=== PATIENT | male | born 1985 | race African-American/Black ===

== ENCOUNTER 2017-03-07 05:51 | Emergency (ER) | payer SELFPAY ==
[2017-03-07 06:14] LABS: #Basophils 0.1 thou/uL (0.0-0.2); #Eosinphils 0.2 thou/uL (0.0-0.7); #Lymphocytes 2.8 thou/uL (1.20-3.40); #Monocytes 0.7 thou/uL (0.11-0.59); #Neutrophils 5.8 thou/uL (1.40-6.50); %Basophils 1.1 % (0.0-1.0); %Eosinophils 1.8 % (0.0-10.0); %Lymphocytes 29.1 % (21.0-51.0); %Monocytes 6.8 % (0.0-10.0); %Neutrophils 61.2 % (42.0-75.0); Hemoglobin 15.2 g/dL (14.0-18.0); Mean Corpuscular HGB CONC 32.7 g/dL (32.0-36.0); Mean Corpuscular Hemoglobin 29.3 pg (27.0-31.0); Mean Corpuscular Volume 89.8 fl (80.0-94.0); Platelet Count 289 thou/uL (130-400); RBC Distribution Width 12.9 % (11.5-14.5); Red Blood Cell (RBC) Count 5.18 mill/uL (4.70-6.10); White Blood Cell (WBC) Count 9.5 thou/uL (4.8-10.8)
[2017-03-07 06:31] LABS: Bilirubin Negative (Negative); Blood, Urine Negative (Negative); Clarity CLEAR (Clear); Glucose, Urine (Dipstick) Negative (Negative); Leukocyte Negative (Negative); Nitrite Negative (Negative); Protein, Urine (Dipstick) Negative (Neg-Trace); Specific Gravity, Urine 1.011 (1.002-1.036); Urobilinogen 0.2 mg/dL (0.2-1.0); pH, Urine 5.5 (5.0-9.0)
[2017-03-07 06:34] LABS: ALT (SGPT) 27 U/L (8-55); AST (SGOT) 33 U/L (5-34); Acetaminophen Less than 6.0 mcg/mL (10.0-30.0); Albumin 4.6 g/dL (3.5-5.0); Alcohol 359 mg/dL (Less than 10); Alkaline Phosphatase 98 U/L (40-150); Anion Gap 20 mmol/L (10-20); BUN (Urea Nitrogen) 13 mg/dL (8.9-20.6); Bilirubin, Total 0.3 mg/dL (0.2-1.2); CK (CPK) 439 U/L (30-200); Calc. Creatinine Clearance 0 mL/min (70-130); Calcium 9.6 mg/dL (7.8-10.44); Carbon Dioxide 22 mmol/L (22-29); Chloride 104 mmol/L (98-107); Estimated GFR-MDRD 75; Globulin 2.8 g/dL (2.4-3.5); Glucose 107 mg/dL (70-105); Potassium 4.4 mmol/L (3.5-5.1); Protein, Total 7.4 g/dL (6.0-8.3); Salicylate Less than 8.0 mg/dL (15.0-30.0); Sodium 142 mmol/L (136-145)
[2017-03-07 06:38] LABS: Troponin I 0.018 ng/mL (< 0.028)
[2017-03-07 06:39] LABS: Amphetamine Not Detected (NotDetected); Barbiturates Screen Not Detected (NotDetected); Benzodiazepine Screen Not Detected (NotDetected); Cocaine Metabolite Screen Not Detected (NotDetected); Medtox Control Line Valid? VALID (VALID); Medtox Reader # READER 4; Methadone Not Detected (NotDetected); Methamphetamine Not Detected (NotDetected); Opiate Screen Not Detected (NotDetected); Oxycodone Screen Not Detected (NotDetected); Phencyclidine (PCP) Detected (NotDetected); THC/Cannabinoid Screen Detected (NotDetected); Tricyclic Screen Not Detected (NotDetected)
[2017-03-07 06:47] LABS: CKMB 7.2 ng/mL (0-6.6)
[2017-03-07] MEDS ORDERED: Multivitamins, Adult 10 ML, Thiamine HCl 100 MG, Folic Acid 1 MG in Dextrose 5 %-0.45 %... IV SCH ×4 (07:00)
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
== END 2017-03-07 12:55 | disposition home or self-care (01) ==
LOC: EDBD 05:51 → ERS 05:51
DX: F10.129 Alcohol abuse with intoxication, unspecified (principal); F17.200 Nicotine dependence, unspecified, uncomplicated
CPT/HCPCS: 36415; 36416; 51701; 70450; 80053; 80306; 80307; 81003; 82140; 82550; 82553; 84484; 85025; 93005; 94760; 96361; 96365; 96366; J3411; J7042

== ENCOUNTER 2017-08-15 19:46 | Emergency (ER) | payer SELFPAY ==
[2017-08-15] MEDS ORDERED: Lorazepam 2 MG/ML VIAL ONE (19:52)
[2017-08-15 20:14] LABS: #Eosinphils 0.2 thou/uL (0.0-0.7); #Lymphocytes 2.9 thou/uL (1.20-3.40); #Monocytes 0.6 thou/uL (0.11-0.59); #Neutrophils 5.2 thou/uL (1.40-6.50); %Basophils 0.5 % (0.0-1.0); %Eosinophils 1.7 % (0.0-10.0); %Lymphocytes 32.3 % (21.0-51.0); %Monocytes 7.1 % (0.0-10.0); %Neutrophils 58.4 % (42.0-75.0); Hemoglobin 11.9 g/dL (14.0-18.0); Mean Corpuscular Hemoglobin 28.3 pg (27.0-31.0); Mean Corpuscular Volume 85.8 fL (78.0-98.0); Platelet Count 220 thou/uL (130-400); RBC Distribution Width 12.2 % (11.5-14.5)
[2017-08-15 20:35] LABS: Acetaminophen Less than 6.0 mcg/mL (10.0-30.0); Alcohol 144 mg/dL (Less than 10); Anion Gap 13 mmol/L (10-20); BUN (Urea Nitrogen) 9 mg/dL (8.9-20.6); Calc. Creatinine Clearance 0 mL/min (70-130); Calcium 8.7 mg/dL (7.8-10.44); Carbon Dioxide 26 mmol/L (22-29); Chloride 104 mmol/L (98-107); Estimated GFR-MDRD 86; Glucose 92 mg/dL (70-105); Potassium 3.6 mmol/L (3.5-5.1); Salicylate Less than 8.0 mg/dL (15.0-30.0); Sodium 139 mmol/L (136-145)
[2017-08-15 20:45] LABS: Amphetamine Not Detected (NotDetected); Barbiturates Screen Not Detected (NotDetected); Benzodiazepine Screen Not Detected (NotDetected); Cocaine Metabolite Screen Not Detected (NotDetected); Medtox Control Line Valid? VALID (VALID); Medtox Reader # READER 4; Methadone Not Detected (NotDetected); Methamphetamine Not Detected (NotDetected); Opiate Screen Not Detected (NotDetected); Oxycodone Screen Not Detected (NotDetected); Phencyclidine (PCP) Not Detected (NotDetected); THC/Cannabinoid Screen Detected (NotDetected); Tricyclic Screen Not Detected (NotDetected)
== END 2017-08-15 21:14 | disposition home or self-care (01) ==
LOC: ERS 19:46
DX: F12.10 Cannabis abuse, uncomplicated (principal); F17.200 Nicotine dependence, unspecified, uncomplicated
CPT/HCPCS: 36415; 80048; 80306; 80307; 82550; 84443; 85025; 96361; 96374; J2060

== ENCOUNTER 2017-08-22 13:07 | Emergency (ER) | payer SELFPAY ==
[2017-08-22] MEDS ORDERED: Ketorolac Tromethamine 30 MG/ML VIAL ONE (13:46)
--- NOTE | 2017-08-22 13:50 | RAD ---
RIGHT SHOULDER 3 VIEWS: Date: 08/22/17 PROVIDED CLINICAL HISTORY: Right shoulder pain. FINDINGS: No evidence for fracture or other acute osseous abnormality. Alignment appears anatomic. Joint spaces appear preserved. Visualized right lung field appears clear. IMPRESSION: Unremarkable right shoulder radiographs. POS: [facility]
== END 2017-08-22 14:22 | disposition home or self-care (01) ==
LOC: ERS 13:07
DX: S46.911A Strain of unspecified muscle, fascia and tendon at shoulder and upper arm level, right arm, initial encounter (principal); X58.XXXA Exposure to other specified factors, initial encounter
CPT/HCPCS: 96372; J1885

== ENCOUNTER 2017-10-27 02:03 | Emergency (ER) | payer SELFPAY | END 2017-10-27 02:40 | LOC: ERS 02:03 | DX: F19.10 Other psychoactive substance abuse, uncomplicated (principal); Z02.89 Encounter for other administrative examinations | CPT/HCPCS: 99283 ==

== ENCOUNTER 2018-02-10 23:38 | Emergency (ER) | payer SELFPAY ==
[2018-02-10] MEDS ORDERED: Ondansetron PF 4 MG/2 ML Vial ONE (23:56)
--- NOTE | 2018-02-11 00:03 | CT ---
BRAIN CT WITHOUT IV CONTRAST 02/10/18 HISTORY: 32-year-old male with history of altered mental status. COMPARISON: 03/07/17 FINDINGS: No focal mass or midline shift. No intra or extra-axial hemorrhage. Minimal ethmoid and maxillary sin us mucosal disease. The mastoids are clear. IMPRESSION: No acute intracranial process. No mass or bleed. Mild sinus mucosal disease. POS: [facility]
[2018-02-11 00:05] LABS: #Basophils 0.1 thou/uL (0.0-0.2); #Lymphocytes 1.4 thou/uL (1.20-3.40); #Monocytes 0.4 thou/uL (0.11-0.59); #Neutrophils 3.9 thou/uL (1.40-6.50); %Basophils 0.9 % (0.0-1.0); %Eosinophils 0.5 % (0.0-10.0); %Lymphocytes 23.7 % (21.0-51.0); %Monocytes 7.6 % (0.0-10.0); %Neutrophils 67.2 % (42.0-75.0); Hemoglobin 13.3 g/dL (14.0-18.0); Mean Corpuscular HGB CONC 32.6 g/dL (32.0-36.0); Mean Corpuscular Hemoglobin 28.6 pg (27.0-31.0); Mean Corpuscular Volume 87.5 fL (78.0-98.0); Mean Platelet Volume 8.4 fL (7.4-10.4); Platelet Count 209 thou/uL (130-400); RBC Distribution Width 12.2 % (11.5-14.5); Red Blood Cell (RBC) Count 4.67 mill/uL (4.70-6.10); White Blood Cell (WBC) Count 5.8 thou/uL (4.8-10.8)
[2018-02-11 00:23] LABS: ALT (SGPT) 17 U/L (8-55); AST (SGOT) 16 U/L (5-34); Acetaminophen Less than 6.0 mcg/mL (10.0-30.0); Albumin 4.2 g/dL (3.5-5.0); Alcohol 93 mg/dL (Less than 10); Alkaline Phosphatase 57 U/L (40-150); Anion Gap 18 mmol/L (10-20); BUN (Urea Nitrogen) 10 mg/dL (8.9-20.6); Bilirubin, Total 0.3 mg/dL (0.2-1.2); Calc. Creatinine Clearance 0 mL/min (70-130); Carbon Dioxide 20 mmol/L (22-29); Chloride 104 mmol/L (98-107); Estimated GFR-MDRD 82; Globulin 2.3 g/dL (2.4-3.5); Glucose 140 mg/dL (70-105); Potassium 3.7 mmol/L (3.5-5.1); Protein, Total 6.5 g/dL (6.0-8.3); Salicylate Less than 8.0 mg/dL (15.0-30.0); Sodium 138 mmol/L (136-145)
[2018-02-11] MEDS ORDERED: Lidocaine 1% w/Epinephrine 1:100K 20 ML VIAL ONE (00:41)
[2018-02-11 01:47] LABS: Bilirubin Negative (Negative); Blood, Urine Negative (Negative); Clarity CLEAR (Clear); Glucose, Urine (Dipstick) Negative (Negative); Leukocyte Negative (Negative); Nitrite Negative (Negative); Protein, Urine (Dipstick) Negative (Neg-Trace); Urobilinogen 0.2 mg/dL (0.2-1.0); pH, Urine 5.5 (5.0-9.0)
[2018-02-11 01:57] LABS: Medtox Reader # READER 4; THC/Cannabinoid Screen Not Detected (NotDetected)
[2018-02-11 01:58] LABS: Amphetamine Not Detected (NotDetected); Barbiturates Screen Not Detected (NotDetected); Benzodiazepine Screen Not Detected (NotDetected); Cocaine Metabolite Screen Not Detected (NotDetected); Medtox Control Line Valid? VALID (VALID); Methadone Not Detected (NotDetected); Methamphetamine Not Detected (NotDetected); Opiate Screen Not Detected (NotDetected); Oxycodone Screen Not Detected (NotDetected); Phencyclidine (PCP) Detected (NotDetected); Tricyclic Screen Not Detected (NotDetected)
== END 2018-02-11 02:26 | disposition home or self-care (01) ==
LOC: ERS 23:38
DX: F19.10 Other psychoactive substance abuse, uncomplicated (principal); F10.129 Alcohol abuse with intoxication, unspecified
CPT/HCPCS: 12001; 70450; 80053; 80306; 80307; 81003; 85025; 96361; 96374; J2001; J2405

== ENCOUNTER 2018-03-15 21:44 | Emergency (ER) | payer SELFPAY ==
[2018-03-15 22:20] LABS: #Basophils 0.1 thou/uL (0.0-0.2); #Eosinphils 0.1 thou/uL (0.0-0.7); #Monocytes 0.7 thou/uL (0.11-0.59); #Neutrophils 6.4 thou/uL (1.40-6.50); %Basophils 1.3 % (0.0-1.0); %Eosinophils 1.3 % (0.0-10.0); %Lymphocytes 21.6 % (21.0-51.0); %Neutrophils 68.8 % (42.0-75.0); Hemoglobin 14.4 g/dL (14.0-18.0); Mean Corpuscular Hemoglobin 28.4 pg (27.0-31.0); Mean Corpuscular Volume 88.9 fL (78.0-98.0); Platelet Count 216 thou/uL (130-400); RBC Distribution Width 12.8 % (11.5-14.5); Red Blood Cell (RBC) Count 5.05 mill/uL (4.70-6.10); White Blood Cell (WBC) Count 9.2 thou/uL (4.8-10.8)
--- NOTE | 2018-03-15 22:24 | RAD ---
PORTABLE CHEST ONE VEIW: 03/15/18 at 10:04 p.m. HISTORY: Altered mental status. FINDINGS: The heart size is normal. The lungs are well expanded without focal areas of consolidation, pneumotho races, or pleural effusions. IMPRESSION: No acute process. POS: [facility]
[2018-03-15 22:38] LABS: Acetaminophen Less than 6.0 mcg/mL (10.0-30.0); Alcohol Less than 10 mg/dL (Less than 10); Salicylate Less than 8.0 mg/dL (15.0-30.0)
[2018-03-15 22:39] LABS: ALT (SGPT) 44 U/L (8-55); AST (SGOT) 126 U/L (5-34); Albumin 3.8 g/dL (3.5-5.0); Alkaline Phosphatase 61 U/L (40-150); Anion Gap 13 mmol/L (10-20); BUN (Urea Nitrogen) 12 mg/dL (8.9-20.6); Bilirubin, Total 0.4 mg/dL (0.2-1.2); Calc. Creatinine Clearance 0 mL/min (70-130); Calcium 8.8 mg/dL (7.8-10.44); Carbon Dioxide 22 mmol/L (22-29); Chloride 104 mmol/L (98-107); Estimated GFR-MDRD 78; Globulin 1.9 g/dL (2.4-3.5); Glucose 88 mg/dL (70-105); Potassium 3.8 mmol/L (3.5-5.1); Protein, Total 5.7 g/dL (6.0-8.3); Sodium 135 mmol/L (136-145)
--- NOTE | 2018-03-15 22:39 | CT ---
CT OF THE BRAIN WITHOUT CONTRAST: 03/15/18 HISTORY: Altered mental status. FINDINGS: Comparison is made with the exam of 03/13/18. No evidence of acute infarct, hemorrhage, midline shift, or abnormal extra-axial fluid collections ar e seen. The ventricular size is normal and the basilar cisterns patent. The bony calvarium is intact. There is minimal mucosal disease in the paranasal sinuses. IMPRESSION: No CT evidence of acute intracranial process. POS: [facility]
[2018-03-15 22:50] LABS: CK (CPK) 7033 U/L (30-200)
[2018-03-15 23:22] LABS: Bilirubin Negative (Negative); Blood, Urine Negative (Negative); Clarity CLEAR (Clear); Glucose, Urine (Dipstick) Negative (Negative); Leukocyte Negative (Negative); Nitrite Negative (Negative); Protein, Urine (Dipstick) Negative (Neg-Trace); Specific Gravity, Urine 1.001 (1.002-1.036); Urobilinogen 0.2 mg/dL (0.2-1.0)
[2018-03-15 23:24] LABS: Medtox Control Line Valid? VALID (VALID); Medtox Reader # READER 1
[2018-03-15 23:26] LABS: Amphetamine Not Detected (NotDetected); Barbiturates Screen Not Detected (NotDetected); Benzodiazepine Screen Not Detected (NotDetected); Cocaine Metabolite Screen Not Detected (NotDetected); Methadone Not Detected (NotDetected); Methamphetamine Not Detected (NotDetected); Opiate Screen Not Detected (NotDetected); Oxycodone Screen Not Detected (NotDetected); Phencyclidine (PCP) Detected (NotDetected); THC/Cannabinoid Screen Detected (NotDetected); Tricyclic Screen Not Detected (NotDetected)
== END 2018-03-16 01:26 | disposition home or self-care (01) ==
LOC: ERS 21:44
DX: T40.995A Adverse effect of other psychodysleptics [hallucinogens], initial encounter (principal); R79.89 Other specified abnormal findings of blood chemistry
CPT/HCPCS: 36415; 70450; 71045; 80053; 80306; 80307; 81003; 82140; 82550; 84443; 84484; 85025; 93005; 96360; 96361

== ENCOUNTER 2018-08-28 21:20 | Emergency (ER) | payer SELFPAY ==
[~2018-08-28 21:20] MED LIST: ISOVUE-370 76%-LOCM 1 ML ONE
[2018-08-28 21:43] LABS: #Basophils 0.1 thou/uL (0.0-0.2); #Eosinphils 0.3 thou/uL (0.0-0.7); #Lymphocytes 2.9 thou/uL (1.20-3.40); #Monocytes 0.4 thou/uL (0.11-0.59); #Neutrophils 3.8 thou/uL (1.40-6.50); %Basophils 1.2 % (0.0-1.0); %Eosinophils 3.6 % (0.0-10.0); %Lymphocytes 38.6 % (21.0-51.0); %Monocytes 5.9 % (0.0-10.0); %Neutrophils 50.6 % (42.0-75.0); Hemoglobin 12.6 g/dL (14.0-18.0); Mean Corpuscular HGB CONC 31.5 g/dL (32.0-36.0); Mean Corpuscular Hemoglobin 27.6 pg (27.0-31.0); Mean Corpuscular Volume 87.6 fL (78.0-98.0); Mean Platelet Volume 8.2 fL (7.4-10.4); Platelet Count 201 thou/uL (130-400); Red Blood Cell (RBC) Count 4.56 mill/uL (4.70-6.10); White Blood Cell (WBC) Count 7.5 thou/uL (4.8-10.8)
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
[2018-08-28 21:56] LABS: ALT (SGPT) 17 U/L (8-55); AST (SGOT) 19 U/L (5-34); Albumin 3.8 g/dL (3.5-5.0); Alkaline Phosphatase 51 U/L (40-150); Anion Gap 11 mmol/L (10-20); BUN (Urea Nitrogen) 11 mg/dL (8.9-20.6); Bilirubin, Total 0.2 mg/dL (0.2-1.2); Calc. Creatinine Clearance 0 mL/min (70-130); Calcium 8.5 mg/dL (7.8-10.44); Carbon Dioxide 22 mmol/L (22-29); Chloride 107 mmol/L (98-107); Estimated GFR-MDRD Greater than 90; Glucose 96 mg/dL (70-105); Potassium 3.9 mmol/L (3.5-5.1); Protein, Total 5.8 g/dL (6.0-8.3); Sodium 136 mmol/L (136-145)
[2018-08-28 21:58] LABS: Acetaminophen Less than 6.0 mcg/mL (10.0-30.0); Alcohol 242 mg/dL (Less than 10); Salicylate Less than 8.0 mg/dL (15.0-30.0)
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
--- NOTE | 2018-08-28 22:06 | CT ---
CT cervical spine without contrast: 08/28/2018 COMPARISON: 06/03/2009 HISTORY: Injury, trauma, pain TECHNIQUE: Axial CT imaging at 2.5 mm intervals through the cervical spine without contrast. Coronal and sagittal reformatted imaging obtained. FINDINGS: C1 ring is intact. Imaged lung apices demonstrate mild subpleural emphysematous change. No evidence for fracture or disl ocation. No prevertebral soft tissue swelling. No anterolisthesis or retrolisthesis. Craniocervical junction, atlantoaxial interspace, dens, and cervicothoracic junction appear unremarkable. Mild promi nence of soft tissue density in the posterior oropharynx, etiology uncertain. IMPRESSION: No acute findings. Results were CT of the head, face, and cervical spine called to Dr. Santhosh cody at 10:00 PM 08/28/2018
[2018-08-28] MEDS ORDERED: Ketorolac Tromethamine 30 MG/ML VIAL ONE (22:09)
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
[2018-08-28] MEDS ORDERED: Adacel (T-DAP) 0.5 ML SYRINGE ONE (22:44)
[2018-08-28 23:01] LABS: Medtox Control Line Valid? VALID (VALID); Medtox Reader # READER 1
[2018-08-28 23:02] LABS: Amphetamine Not Detected (NotDetected); Barbiturates Screen Not Detected (NotDetected); Benzodiazepine Screen Not Detected (NotDetected); Cocaine Metabolite Screen Detected (NotDetected); Methadone Not Detected (NotDetected); Methamphetamine Not Detected (NotDetected); Opiate Screen Not Detected (NotDetected); Oxycodone Screen Not Detected (NotDetected); Phencyclidine (PCP) Detected (NotDetected); THC/Cannabinoid Screen Not Detected (NotDetected); Tricyclic Screen Not Detected (NotDetected)
[2018-08-28] MEDS ORDERED: Lidocaine 1% w/Epinephrine 1:100K 20 ML VIAL ONE (23:33)
[2018-08-29] MEDS ORDERED: Bacitracin 1 PK ONE (00:27)
== END 2018-08-29 00:34 | disposition home or self-care (01) ==
LOC: ERS 21:20
DX: S02.651A Fracture of angle of right mandible, initial encounter for closed fracture (principal); S02.2XXA Fracture of nasal bones, initial encounter for closed fracture; S01.81XA Laceration without foreign body of other part of head, initial encounter; F10.129 Alcohol abuse with intoxication, unspecified; Z23 Encounter for immunization; V29.9XXA Motorcycle rider (driver) (passenger) injured in unspecified traffic accident, initial encounter; Y93.55 Activity, bike riding
CPT/HCPCS: 12011; 70450; 70486; 71045; 72125; 74177; 80053; 80306; 80307; 85025; 90471; 90715; 96374; G0390; J1885; J2001; Q9966

== ENCOUNTER 2018-08-29 16:02 | Observation (INO) | payer SELFPAY ==
[~2018-08-29 16:02] MED LIST changes: +Dexamethasone 20 MG/5 ML VIAL ONE; +Glycopyrrolate 0.2 MG/ML 5 ML SYRINGE ONE; -ISOVUE-370 76%-LOCM 1 ML ONE; +Lidocaine 1% PF 5 ML VIAL ONE; +Ondansetron PF 4 MG/2 ML Vial ONE; +PROPOFOL 200 MG/20 ML VIAL ONE; +Rocuronium Bromide 10 MG/ML (10ML VIAL) ONE
[2018-08-29] MEDS ORDERED: Bacitracin Zinc Ointment 30 gm TUBE ONE (16:24)
[2018-08-29] MEDS ORDERED: Lidocaine 1% w/Epinephrine 1:100K 20 ML VIAL ONE (16:24)
[2018-08-29] MEDS ORDERED: Oxymetazoline HCl 0.05% ( 15 ML ) ONE ×2 (16:24→18:02)
[2018-08-29] MEDS ORDERED: Chlorhexidine Gluconate 15 ML UDCUP SSP ONE (16:24)
[2018-08-29] MEDS ORDERED: ceFAZolin Sodium (SDC) 2 GM/100 ML BAG ONE (16:55)
[2018-08-29] MEDS ORDERED: Dexamethasone 4 mg/ml Vial ONE ×2 (16:55→18:17)
[2018-08-29] MEDS ORDERED: Clindamycin/D5W 600 mg/50 ml Premix Bag ONE (17:00)
[2018-08-29] MEDS ORDERED: Chlorhexidine Gluconate 15 ML UDCUP SSP SCH ×2 (17:00→21:15)
[2018-08-29] MEDS ORDERED: Famotidine/PF 20 mg/2ml Vial ONE (17:12)
[2018-08-29] MEDS ORDERED: Scopolamine 1.5 mg/72 hour Patch ONE (17:12)
[2018-08-29] MEDS ORDERED: Ondansetron PF 4 MG/2 ML Vial ONE (17:13)
[2018-08-29] MEDS ORDERED: Sodium Chloride 0.9% 10 ML ONE (17:32)
[2018-08-29] MEDS ORDERED: Fentanyl 250 MCG/5 ML VIAL ONE (18:00)
[2018-08-29] MEDS ORDERED: Midazolam HCl 2 mg/2 ml Vial ONE (18:00)
[2018-08-29] MEDS ORDERED: Lidocaine 2% Jelly 5 ML TUBE ONE (18:00)
[2018-08-29] MEDS ORDERED: Promethazine HCl 25 MG/ML VIAL SLOW IVP PRN (20:52)
[2018-08-29] MEDS ORDERED: Ondansetron HCl/PF 4 MG/2 ML Vial IVP PRN (20:52)
[2018-08-29] MEDS ORDERED: Promethazine HCl 25 MG/ML VIAL IM PRN (20:52)
[2018-08-29] MEDS ORDERED: HYDROmorphone 2 MG/ML VIAL SLOW IVP PRN (20:52)
[2018-08-29] MEDS ORDERED: Morphine 4 MG/ML VIAL SLOW IVP PRN (21:00)
[2018-08-29] MEDS ORDERED: Hydrocodone-Acetamin 15 ML UDCUP PO PRN (21:00)
[2018-08-29] MEDS ORDERED: hydrALAZINE 20 MG/ML VIAL ONE (21:04)
[2018-08-29] MEDS ORDERED: Ondansetron PF 4 MG/2 ML Vial SLOW IVP PRN (21:12)
[2018-08-29 22:32] VITALS: BMI 27.3
[2018-08-29] MEDS: D5 1/2 NS w/20 mEq KCL 1,000 ML IV SCH (23:11)
[2018-08-29] MEDS: Clindamycin/D5W 600 MG in Premix Bag 1 BAG IVPB SCH (23:12)
[2018-08-30] MEDS: Ibuprofen 100 MG/5 ML UDCUP PO SCH ×3 (00:38→11:53)
[2018-08-30] MEDS: Clindamycin/D5W 600 MG in Premix Bag 1 BAG IVPB SCH ×2 (06:29→11:53)
--- NOTE | 2018-08-30 08:58 | CT ---
CT Facial Bones WO Con History: ORIF. Comparison: CT face 2 days prior Findings: Interval mandibulomaxillary fixation. Extraction of the right mandibular first molar. Later al plate-screw fixation right and either angle fracture extending through the root of the right third molar. Alignment is satisfactory. Temporal mandibular joint alignment is normal. There is a small piece of alveolar bone from the medial cortex right maxilla at the third mandibular molar at the fracture line which may be free floating measuring 5 x 1 x 4 mm. Pterygoid plates are intact as well as nasal bones. Orbital floors, orbital roofs, medial orbital wal ls are intact. Globes are intact. Impacted left nasal bone fracture similar. Impression: Satisfactory postoperative appearance.
[2018-08-30 12:02] VITALS: BP 144/81; TEMP 97.6
[2018-08-30] MEDS: D5 1/2 NS w/20 mEq KCL 1,000 ML IV SCH (12:58)
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
== END 2018-08-30 13:33 | disposition home or self-care (01) ==
LOC: SDC 16:02 → SURG B 20:31
PROVIDERS: ADMIT Dentist Oral and Maxillofacial Surgery; ATTEND Dentist Oral and Maxillofacial Surgery
PROC: 0NST0ZZ Reposition Right Mandible, Open Approach (ICD-10-PCS; principal; 2018-08-30)
PROC: 0NSBXZZ Reposition Nasal Bone, External Approach (ICD-10-PCS; 2018-08-30)
PROC: 0CTX0Z0 Resection of Lower Tooth, Single, Open Approach (ICD-10-PCS; 2018-08-30)
DX: S02.2XXA Fracture of nasal bones, initial encounter for closed fracture (principal); S02.651A Fracture of angle of right mandible, initial encounter for closed fracture; K04.7 Periapical abscess without sinus
CPT/HCPCS: 70486; 96365; 96366; 96375; 96376; C1713; G0378; J0131; J0360; J0690; J1100; J2001; J2250; J2270; J2405; J2704; J3010; J3490; S0028